=== PATIENT | female | born 1960 | race Caucasian/White ===

== ENCOUNTER 2016-09-27 11:25 | Observation (INO) | payer BC ==
[~2016-09-27] VITALS: Ht 167.6 cm; Wt 64.0 kg
[2016-09-27 11:49] VITALS: BP 119/83; PULSE 96; RESP 20; TEMP 97.7; O2SAT 100
[2016-09-27] MEDS ORDERED: SODIUM CHLOR 0.9% 1000 ML INJ 1,000 ML IV ONE (12:59)
[2016-09-27] MEDS ORDERED: SODIUM CHLORIDE 0.9% FLUSH 5 ML FLUSH IVF PRN (13:00)
[2016-09-27] MEDS ORDERED: ONDANSETRON HCL 4 MG/2 ML VIAL IVP ONE (13:00)
--- NOTE | 2016-09-27 13:12 | PD ---
HPI Chief Complaint: Flank/Kidney Pain Time Seen by Provider: 13:07 Travel History International Travel<30 days: No Contact w/Intl Traveler<30days: No Traveled to known affect area: No History of Present Illness HPI Patient is a 55-year-old female who presented to emergency for evaluation of left flank pain, nausea, vomiting. Patient states her symptoms started last night. She's been dry heaving since that time. Patient reports being treated for urinary tract infection twice over the last month with the last dose of antibiotics ending around September 14, 2016. Patient states that she was on Bactrim twice for 5 days each. She denies any abdominal pain, chest pain, shortness of breath. PFSH Past Medical History Thyroid Disease: Yes ?: Not LMP: Leela- Social History Alcohol Use: Yes Tobacco Use: No Substance Use: No Allergies-Medications (Allergen,Severity, Reaction): Coded Allergies: No Known Allergies (Unverified , 09/27/16) Reported Meds & Prescriptions Reported Meds & Active Scripts Active Reported Levothyroxine (Levothyroxine Sodium) 50 Mcg Tab 50 Mcg PO DAILY Review of Systems Except as stated in HPI: all other systems reviewed are Neg General / Constitutional: No: Fever, Chills HENT: No: Headaches Cardiovascular: No: Chest Pain or Discomfort Respiratory: No: Shortness of Breath Gastrointestinal: Positive: Nausea, Vomiting, Other (left flank pain) Genitourinary: No: Dysuria Physical Exam Narrative GENERAL: Developed, well-nourished, alert female. Appears acutely ill , in no acute distress. SKIN: Warm and dry. HEAD: Atraumatic. Normocephalic. EYES: Pupils equal and round. No scleral icterus. No injection or drainage. ENT: No nasal bleeding or discharge. Mucous membranes pink and moist. NECK: Trachea midline. No JVD. CARDIOVASCULAR: Regular rate and rhythm. No murmur appreciated. RESPIRATORY: No accessory muscle use. Clear to auscultation. Breath sounds equal bilaterally. GASTROINTESTINAL: Abdomen soft, non-tender, nondistended. Hepatic and splenic margins not palpable. MUSCULOSKELETAL: No obvious deformities. No clubbing. No cyanosis. No edema. Mild CVA tenderness on the left, none on the right. NEUROLOGICAL: Awake and alert. No obvious cranial nerve deficits. Motor grossly within normal limits. Normal speech. PSYCHIATRIC: Appropriate mood and affect; insight and judgment normal. Data Data Last Documented VS Vital Signs Date Time Temp Pulse Resp B/P Pulse Ox O2 Delivery O2 Flow Rate FiO2 09/27/16 11:49 97.7 96 20 119/83 100 Orders Complete Blood Count With Diff (09/27/16 12:59) Comprehensive Metabolic Panel (09/27/16 12:59) Urinalysis - C+S If Indicated (09/27/16 12:59) Iv Access Insert/Monitor (09/27/16 12:59) Ondansetron Inj (Zofran Inj) (09/27/16 13:00) Sodium Chloride 0.9% Flush (Ns Flush) (09/27/16 13:00) Sodium Chlor 0.9% 1000 Ml Inj (Ns 1000 M (09/27/16 12:59) Ct Abd/Pel W/O Iv Contrast (09/27/16 ) Ketorolac Inj (Toradol Inj) (09/27/16 13:45) Npo After Midnight W/ Po Meds (09/27/16 Dinner) ^ Consent (09/27/16 15:16) Admit Order (Ed Use Only) (09/27/16 15:51) Labs Laboratory Tests Test 09/27/16 09/27/16 13:00 13:15 Urine Color YELLOW Urine Turbidity CLEAR Urine pH 8.5 Urine Specific [place] 1.020 Urine Protein TRACE mg/dL Urine Glucose (UA) NEG mg/dL Urine Ketones 80 OR GREATER mg/dL Urine Occult Blood SMALL Urine Nitrite NEG Urine Bilirubin NEG Urine Leukocyte Esterase NEG Urine RBC 0-3 /hpf Urine WBC 6-8 /hpf Urine Transitional Epithelial 0-5 /hpf Cells Urine Bacteria OCC /hpf Urine Mucus OCC /lpf Microscopic Urinalysis Comment CULT NOT INDICATED White Blood Count 10.7 TH/MM3 Red Blood Count 4.68 MIL/MM3 Hemoglobin 13.9 GM/DL Hematocrit 40.6 % Mean Corpuscular Volume 86.8 FL Mean Corpuscular Hemoglobin 29.7 PG Mean Corpuscular Hemoglobin 34.2 % Concent Red Cell Distribution Width 11.7 % Platelet Count 324 TH/MM3 Mean Platelet Volume 9.1 FL Neutrophils (%) (Auto) 85.5 % Lymphocytes (%) (Auto) 5.9 % Monocytes (%) (Auto) 6.8 % Eosinophils (%) (Auto) 0.0 % Basophils (%) (Auto) 1.8 % Neutrophils # (Auto) 9.2 TH/MM3 Lymphocytes # (Auto) 0.6 TH/MM3 Monocytes # (Auto) 0.7 TH/MM3 Eosinophils # (Auto) 0.0 TH/MM3 Basophils # (Auto) 0.2 TH/MM3 CBC Comment AUTO DIFF Differential Comment AUTO DIFF CONFIRMED Sodium Level 140 MEQ/L Potassium Level 3.7 MEQ/L Chloride Level 103 MEQ/L Carbon Dioxide Level 25.2 MEQ/L Anion Gap 12 MEQ/L Blood Urea Nitrogen 12 MG/DL Creatinine 0.87 MG/DL Estimat Glomerular Filtration 67 ML/MIN Rate Random Glucose 105 MG/DL Calcium Level 9.2 MG/DL Total Bilirubin 0.6 MG/DL Aspartate Amino Transf 23 U/L (AST/SGOT) Alanine Aminotransferase 32 U/L (ALT/SGPT) Alkaline Phosphatase 77 U/L Total Protein 7.8 GM/DL Albumin 4.1 GM/DL MDM Medical Decision Making Medical Screen Exam Complete: Yes Emergency Medical Condition: Yes Interpretation(s) Laboratory Tests Test 09/27/16 09/27/16 13:00 13:15 Urine Color YELLOW Urine Turbidity CLEAR Urine pH 8.5 Urine Specific [place] 1.020 Urine Protein TRACE mg/dL Urine Glucose (UA) NEG mg/dL Urine Ketones 80 OR GREATER mg/dL Urine Occult Blood SMALL Urine Nitrite NEG Urine Bilirubin NEG Urine Leukocyte Esterase NEG Urine RBC 0-3 /hpf Urine WBC 6-8 /hpf Urine Transitional Epithelial 0-5 /hpf Cells Urine Bacteria OCC /hpf Urine Mucus OCC /lpf Microscopic Urinalysis Comment CULT NOT INDICATED White Blood Count 10.7 TH/MM3 Red Blood Count 4.68 MIL/MM3 Hemoglobin 13.9 GM/DL Hematocrit 40.6 % Mean Corpuscular Volume 86.8 FL Mean Corpuscular Hemoglobin 29.7 PG Mean Corpuscular Hemoglobin 34.2 % Concent Red Cell Distribution Width 11.7 % Platelet Count 324 TH/MM3 Mean Platelet Volume 9.1 FL Neutrophils (%) (Auto) 85.5 % Lymphocytes (%) (Auto) 5.9 % Monocytes (%) (Auto) 6.8 % Eosinophils (%) (Auto) 0.0 % Basophils (%) (Auto) 1.8 % Neutrophils # (Auto) 9.2 TH/MM3 Lymphocytes # (Auto) 0.6 TH/MM3 Monocytes # (Auto) 0.7 TH/MM3 Eosinophils # (Auto) 0.0 TH/MM3 Basophils # (Auto) 0.2 TH/MM3 CBC Comment AUTO DIFF Differential Comment AUTO DIFF CONFIRMED Sodium Level 140 MEQ/L Potassium Level 3.7 MEQ/L Chloride Level 103 MEQ/L Carbon Dioxide Level 25.2 MEQ/L Anion Gap 12 MEQ/L Blood Urea Nitrogen 12 MG/DL Creatinine 0.87 MG/DL Estimat Glomerular Filtration 67 ML/MIN Rate Random Glucose 105 MG/DL Calcium Level 9.2 MG/DL Total Bilirubin 0.6 MG/DL Aspartate Amino Transf 23 U/L (AST/SGOT) Alanine Aminotransferase 32 U/L (ALT/SGPT) Alkaline Phosphatase 77 U/L Total Protein 7.8 GM/DL Albumin 4.1 GM/DL Vital Signs Date Time Temp Pulse Resp B/P Pulse Ox O2 Delivery O2 Flow Rate FiO2 09/27/16 11:49 97.7 96 20 119/83 100 Differential Diagnosis Pyelonephritis versus kidney stone versus gastroenteritis versus obstruction versus other Narrative Course Patient is a 59-year-old female who presented to emergency for evaluation of left flank pain, nausea, vomiting that started last night. Patient has been treated twice over the last month for urinary tract infection. Differential to include pyelonephritis, renal calculi, gastroenteritis. Absent imaging ordered and pending. IV fluids and Zofran ordered. Her vital signs are stable, at bedside. Patient's pain is well-controlled at this time with Toradol , she has had no further vomiting. CT report shows a left obstructing renal calculi at the UP junction, discussed with Dr. Armstrong who recommended patient to transfer to [facility], for surgery at 9 AM[facility]. Discussed patient's presentation, labs, imaging with Dr. Moncada who accepted admission. Discussed findings with patient and her , they are agreeable to plan, agreeable to transfer to the [facility] hospital. Patient continues to be resting comfortably, she has not had any further vomiting. Diagnosis Primary Impression: Hydronephrosis with urinary obstruction due to renal calculus Admitting Information Admitting Physician Requests: Observation Condition: Stable Abigail Bain Sep 27, 2016 13:12
[2016-09-27] MEDS ORDERED: LEVO50TA4 PO (13:19)
[2016-09-27 13:22] LABS: BLOOD, URINE SMALL (NEG); GLUCOSE,URINE NEG (NEG); NITRITE,URINE NEG (NEG); PH, URINE 8.5 (5.0-8.5)
[2016-09-27 13:23] LABS: KETONE, URINE 80 OR GREATER mg/dL (NEG)
[2016-09-27 13:26] LABS: AUTOMATED NEUTROPHIL # 9.2 TH/MM3 (1.8-7.7); BASOPHIL # 0.2 TH/MM3 (0-0.2); BASOPHIL % 1.8 % (0.0-2.0); HEMATOCRIT 40.6 % (35.0-46.0); LYMPH % 5.9 % (9.0-44.0); LYMPHOCYTE # 0.6 TH/MM3 (1.0-4.8); MEAN CELL VOLUME 86.8 FL (80.0-100.0); MEAN CORPUSCULAR HEMOGLOBIN 29.7 PG (27.0-34.0); MEAN CORPUSCULAR HGB CONC 34.2 % (32.0-36.0); MONO % 6.8 % (0.0-8.0); NEUT % 85.5 % (16.0-70.0); PLATELET COUNT 324 TH/MM3 (150-450); RED BLOOD COUNT 4.68 MIL/MM3 (4.00-5.30); RED CELL DISTRIBUTION WIDTH 11.7 % (11.6-17.2); WHITE BLOOD COUNT 10.7 TH/MM3 (4.0-11.0)
[2016-09-27 13:28] LABS: HEMO FLAGS AUTO DIFF
[2016-09-27 13:33] LABS: MUCUS URINE OCC /lpf (OCC); URINE COLOR YELLOW (YELLW/STRAW)
[2016-09-27 13:34] LABS: BACTERIA, URINE OCC /hpf; COMMENT (UR) CULT NOT INDICATED; CULTURE IF INDICATED CULT NOT INDICATED; RBC, URINE 0-3 /hpf (0-3); TRANSITIONAL EPI CELLS, URINE 0-5 /hpf
[2016-09-27 13:36] LABS: CHLORIDE 103 MEQ/L (98-107); POTASSIUM 3.7 MEQ/L (3.5-5.1); SODIUM (NA) 140 MEQ/L (136-145)
[2016-09-27 13:40] LABS: ANION GAP 12 MEQ/L (5-15); BICARBONATE 25.2 MEQ/L (21.0-32.0); BLOOD UREA NITROGEN 12 MG/DL (7-18)
[2016-09-27 13:43] LABS: ALT (GPT) 32 U/L (10-53); AST (GOT) 23 U/L (15-37); GLOMERULAR FILTRATION RATE 67 ML/MIN (>89)
[2016-09-27 13:44] LABS: TOTAL BILIRUBIN ADULT 0.6 MG/DL (0.2-1.0)
[2016-09-27] MEDS ORDERED: KETOROLAC TROMETHAMINE 30 MG/ML (IVP) VIAL IV PUSH ONE (13:45)
[2016-09-27 13:46] LABS: ALKALINE PHOSPHATASE 77 U/L (45-117)
[2016-09-27 13:49] LABS: SCAN/DIFF AUTO DIFF CONFIRMED
--- NOTE | 2016-09-27 14:41 | RADHPO ---
EXAM DATE/TIME: 09/27/2016 14:09 [facility] COMPARISON: No previous studies available for comparison. INDICATIONS: Left flank pain. ORAL CONTRAST: No oral contrast ingested. RADIATION DOSE: 11.35 CTDIvol (mGy) MEDICAL HISTORY: None SURGICAL HISTORY: section. ENCOUNTER: Initial ACUITY: 2 days PAIN SCALE: 0/10 LOCATION: Left flank TECHNIQUE: Volumetric scanning of the abdomen and pelvis was performed. Using automated exposure control and ad justment of the mA and/or kV according to patient size, radiation dose was kept as low as reasonably achievable to obtain optimal diagnostic quality images. FINDINGS: The liver is free of focal defects. Spleen is unremarkable. Pancreas and adrenals appear normal. The right kidney is unremarkable. There is marked perinephric stranding about the left kidney with a densely calcified 1.7 cm stone in the proximal left renal pelvis at the UP junction causing a moderate obstruction. Marked perinephric stranding is noted. Pelvic contents unremarkable. Review of bone windows reveals only degenerative changes. CONCLUSION: Obstructing stone of UP junction on the left causing a moderate hydronephrosis. Everton Simon MD FACR on September 27, 2016 at 14:28 Board Certified Radiologist. This report was verified electronically.
[2016-09-27 16:20] VITALS: BP 131/66; PULSE 90; RESP 20; O2SAT 100
[2016-09-27] MEDS ORDERED: ACETAMINOPHEN 325 MG TAB PO PRN (16:45)
[2016-09-27] MEDS ORDERED: NALOXONE HCL 0.4 MG/ML AMP IV PRN (16:45)
[2016-09-27] MEDS ORDERED: SODIUM CHLORIDE 0.9% FLUSH 5 ML FLUSH FLUSH PRN (16:45)
[2016-09-27] MEDS: SODIUM CHLOR 0.9% 1000 ML INJ 1,000 ML IV SCH ×2 (17:35→21:30)
[2016-09-27] MEDS: MORPHINE SULFATE 4 MG/ML INJ IV PUSH PRN ×2 (17:35→23:09)
[2016-09-27] MEDS: ONDANSETRON HCL 4 MG/2 ML VIAL IVP PRN ×2 (17:36→23:08)
[2016-09-27 18:30] VITALS: BP 119/55; PULSE 98; RESP 18; O2SAT 98
[2016-09-27] MEDS: SODIUM CHLORIDE 0.9% FLUSH 5 ML FLUSH FLUSH SCH (21:00)
[2016-09-27 22:53] VITALS: BP 125/87; PULSE 97; RESP 16; TEMP 98.5; O2SAT 99
[2016-09-28] MEDS ORDERED: LEVOTHYROXINE SODIUM 50 MCG TAB PO SCH (06:00)
[2016-09-28 06:21] VITALS: BP 119/72; PULSE 84; RESP 16; TEMP 98.4; O2SAT 98
[2016-09-28] MEDS: ONDANSETRON HCL 4 MG/2 ML VIAL IVP PRN (06:25)
[2016-09-28 07:35] VITALS: BP 121/62; PULSE 95; RESP 17; TEMP 98; O2SAT 98
[2016-09-28 07:59] LABS: AUTOMATED NEUTROPHIL # 7.5 TH/MM3 (1.8-7.7); BASOPHIL % 0.5 % (0.0-2.0); EOSINOPHIL % 0.1 % (0.0-4.0); HEMATOCRIT 34.3 % (35.0-46.0); HEMO FLAGS DIFF FINAL; LYMPH % 9.3 % (9.0-44.0); LYMPHOCYTE # 0.9 TH/MM3 (1.0-4.8); MEAN CELL VOLUME 87.6 FL (80.0-100.0); MEAN CORPUSCULAR HEMOGLOBIN 30.2 PG (27.0-34.0); MEAN CORPUSCULAR HGB CONC 34.5 % (32.0-36.0); MONO % 11.2 % (0.0-8.0); NEUT % 78.9 % (16.0-70.0); PLATELET COUNT 236 TH/MM3 (150-450); RED BLOOD COUNT 3.92 MIL/MM3 (4.00-5.30); RED CELL DISTRIBUTION WIDTH 12.5 % (11.6-17.2); WHITE BLOOD COUNT 9.5 TH/MM3 (4.0-11.0)
[2016-09-28 08:18] LABS: BICARBONATE 23.4 MEQ/L (21.0-32.0); POTASSIUM 3.6 MEQ/L (3.5-5.1)
--- NOTE | 2016-09-28 08:42 | MH ---
cc: ANGELIC MONCADA MD DATE OF ADMISSION 09/27/2016 DATE OF [address] Angelic Moncada PRIMARY CARE PHYSICIAN Dr. Suero REASON FOR ADMISSION Fever, flank pain radiated to the abdomen. HISTORY OF PRESENT ILLNESS The patient is a very pleasant 55-year female seen with a past medical history of hypothyroidism for which he is on Levothyroxine. As per patient's history, the patient has been seen at the bedside. The patient has started having pain in her left-sided pointing toward the back area, left and periumbilical area starting on Tuesday evening. After two hours, she started having nausea and vomiting. It was initially mild and then moderate in intensity. She came to the ER yesterday morning around 9-9:30. After pain medication, it was improving, but she is still having nausea and nausea subsided as well with medication. Workup was started which showed the patient had an obstructive stone of the UP junction on the left causing a moderate hydronephrosis for which the patient was recommended for admission with urology intervention. The [facility] talked to Dr. Anthony Armstrong who recommended for admission to the [facility] for intervention. The patient was transferred yesterday late last night and today she is seen in her room with her . At present, the patient has no pain. She has no nausea or vomiting. She is feeling tired. There are no other associated symptoms. PAST MEDICAL HISTORY Thyroid nodule PAST SURGICAL HISTORY History of in the past. MEDICATIONS Levothyroxine REVIEW OF SYSTEMS As described above in history of present illness, otherwise negative for 10 systems. SOCIAL HISTORY The patient does not smoke, drink, and does not do any drugs. Works in a dentist's office. ALLERGIES The patient has NO KNOWN DRUG ALLERGIES. FAMILY HISTORY Father has leukemia. Mother has Hodgkin's. PHYSICAL EXAM The patient is alert and oriented x3, well-built, well-nourished lying on bed without any apparent distress at present. VITALS: Show the patient is afebrile, pulse is 93, respiratory rate is 17, blood pressure was 121/62, pulse ox of 98 on room air. HEENT: Head is atraumatic, normocephalic. Eyes, negative conjunctival icterus. Mouth unremarkable. NECK: Supple. No increased in JVD. Negative thyromegaly. Central trachea. RESPIRATORY: Chest clear to auscultation. CARDIOVASCULAR: S1 and S2 audible. Unable to hear any S3 gallop or murmur. GI: Abdomen is soft, no organomegaly. Positive bowel sounds. MUSCULOSKELETAL: Extremities have no cyanosis or pedal edema appreciated. [employer]: Grossly intact. SKIN: Warm and dry. PSYCH: Appropriate mood and affect. ABDOMEN: There is no positive tenderness of the costophrenic angle or periumbilical region. INVESTIGATIONS WBC, hemoglobin, hematocrit and platelet count within normal limits. BMP done yesterday is within normal limits. GFR is 67. LFTs within normal limits. Urine shows urine ketones 80, occult blood is small, WBC's 6-8, culture not indicated. IMAGING STUDIES Abdominal and pelvic CT shows obstructing stone a UP junction on the left causing moderate hydronephrosis. ASSESSMENT 1. Severe flank and jane-abdominal pain with hydronephrosis and urinary obstruction due to renal calculus. 2. Thyroid nodule on Levothyroxine. PLAN 1. Admit to the floor. 2. IV hydration. 3. Continue home medication. 4. P.r.n. pain medication. 5. P.r.n. Antiemetics. 6. SCD's for DVT prophylaxis. 7. Also, urology consult for intervention possible this morning. 8. Continue home medication. 9. Discussed with the patient and at bedside. 10. EKG 11. Further recommendation to follow as per patient progress. Angelic Moncada MD JP/NICANOR /8:16 AM :30 AM
[2016-09-28] MEDS ORDERED: MIDAZOLAM HCL 2 MG/2 ML VIAL ONE (08:44)
[2016-09-28] MEDS ORDERED: DEXAMETHASONE SOD PHOS 4 MG/ML VIAL ONE (08:44)
[2016-09-28] MEDS ORDERED: ceFAZolin INJ 1,000 MG VIAL ONE (08:44)
[2016-09-28] MEDS ORDERED: ACETAMINOPHEN 1000 MG/100 ML VIAL IV ONE (08:44)
[2016-09-28] MEDS ORDERED: FAMOTIDINE 20 MG/2 ML VIAL ONE (08:44)
[2016-09-28] MEDS ORDERED: SODIUM CHLORIDE 0.9% INJ 100 ML ONE (08:44)
[2016-09-28] MEDS: SODIUM CHLORIDE 0.9% FLUSH 5 ML FLUSH FLUSH SCH (09:00)
[2016-09-28] MEDS ORDERED: ceFAZolin 1,000 MG/NS 100 ML IV SCH ×2 (09:15)
--- NOTE | 2016-09-28 09:34 | MB ---
cc: ADRIEL MENARD DATE OF CONSULTATION: 09/28/2016 REASON FOR CONSULTATION: Follow up. HISTORY OF PRESENT ILLNESS: This is a pleasant 55-year-old female who presented with left-sided flank pain, lower abdominal pain. which began on Tuesday evening she then developed nausea and vomiting and then presented to the emergency room in [place]. CT scan was performed demonstrating 1.7, stone at the left UPJ with hydronephrosis present. ALLERGIES She has no known drug allergies. MEDICATIONS: Levothyroxine. PAST MEDICAL HISTORY: Hypothyroidism There has been no prior history of stones. PAST SURGICAL HISTORY: Notable for . SOCIAL HISTORY Denies smoking, drinking or using any drugs. FAMILY HISTORY: Her family history. She denies any family history of stones. REVIEW OF SYSTEMS As per the HPI, otherwise negative for the 10 systems. PHYSICAL EXAMINATION: VITAL SIGNS: Temperature is 98, heart rate 95, respiratory rate 17, 121/62 90% on room air. IN GENERAL: She is well-developed, well-nourished 55-year-old female in no acute distress. HEAD, EYES, EARS, NOSE, AND THROAT: Normocephalic and atraumatic. Pupils equal round reactive to light. Extraocular is intact. NECK: Neck is supple. Trachea is midline. Oral mucosa is moist. HEART: The heart rate is regular rate and rhythm. LUNGS: Lungs are clear to auscultation. ABDOMEN: Soft, nontender, nondistended. There is left costovertebral angle tenderness noted. EXTREMITIES: Show no signs clubbing or edema. LABORATORY FINDINGS: White count 9.5, hemoglobin of 11.8, hematocrit 34.3, platelet count 236, sodium 141, potassium 3.6, chloride 108, CO2 23.4, BUN of nine, creatinine 1.0, glucose of 100. Urinalysis shows 6 to 8 white cells and 0-[address] imaging was reviewed by myself demonstrating a 1.7-cm left stone at the UPJ with mild to moderate hydronephrosis. ASSESSMENT: A 55-year-old female with a 1.7 left UPJ test stone causing hydronephrosis with obstruction. RECOMMENDATIONS Cystoscopy with left double-J stent insertion followed by extracorporeal shock wave lithotripsy in the future. Risk and benefits were discussed and the patient is willing to proceed. Adrieliraj Wan 9:05 AM 9:13 AM
[2016-09-28] MEDS ORDERED: IOHEXOL 300 MG/ML 50 ML BTL (for RAD DIAG) OTHER ONE (09:35)
[2016-09-28] MEDS ORDERED: DO NOT ADM ANY ANTICOAGULANT DRUGS XX PRN (10:00)
[2016-09-28 11:17] VITALS: BP 114/60; PULSE 91; RESP 20; TEMP 97.2; O2SAT 99
[2016-09-28] MEDS ORDERED: ONDANSETRON HCL 4 MG/2 ML VIAL IV PUSH ONE (13:27)
[2016-09-28] MEDS ORDERED: PROPOFOL 200 MG/20 ML AMP IV ONE (13:27)
[2016-09-28 14:33] VITALS: BP 112/57; PULSE 106; RESP 20; TEMP 98.1; O2SAT 98
--- NOTE | 2016-09-28 15:11 | HHI.DS ---
Discharge Summary Admission Date Sep 27, 2016 at 15:53 Admitting Diagnosis hydronephrosis, obstructing renal calculi (1) Hydronephrosis with urinary obstruction due to renal calculus Diagnosis: Principal Brief History Patient was admitted because of pain nausea vomiting. Follow to have a obstructing ureteral stone causing hydronephrosis. Patient was admitted put on IV hydration and appropriate medication including analgesics. Urology consultation was called in. Patient has double-J stent with cystoscopy in the left ureter. As per urologist can be discharged. As patient is overall stable and good condition plan to discharge her home to follow urology as outpatient. Advised to call urology office for further appointment. Also to follow her primary care doctor. Patient will be discharged on home medications plus Lortab every 6 hours when necessary basis or radium 100 mg twice a day and Levaquin 500 mg by mouth daily for 3 days. Patient understood all. Prescriptions for above medications given to the patient CBC/BMP: 09/28/16 0700 09/28/16 0700 Significant Findings Laboratory Tests Test 09/27/16 09/27/16 09/28/16 13:00 13:15 07:00 Urine Ketones 80 OR GREATER mg/dL (NEG) Urine Occult Blood SMALL (NEG) Urine WBC 6-8 /hpf (0-5) Urine Bacteria OCC /hpf (NONE) Neutrophils (%) (Auto) 85.5 % 78.9 % (16.0-70.0) (16.0-70.0) Lymphocytes (%) (Auto) 5.9 % (9.0-44.0) Neutrophils # (Auto) 9.2 TH/MM3 (1.8-7.7) Lymphocytes # (Auto) 0.6 TH/MM3 0.9 TH/MM3 (1.0-4.8) (1.0-4.8) Estimat Glomerular Filtration 67 ML/MIN (>89) 56 ML/MIN (>89) Rate Red Blood Count 3.92 MIL/MM3 (4.00-5.30) Hematocrit 34.3 % (35.0-46.0) Monocytes (%) (Auto) 11.2 % (0.0-8.0) Monocytes # (Auto) 1.1 TH/MM3 (0-0.9) Chloride Level 108 MEQ/L (98-107) Creatinine 1.01 MG/DL (0.50-1.00) Calcium Level 8.4 MG/DL (8.5-10.1) Pt Condition on Discharge: Good Discharge Disposition: Discharge Home Discharge Instructions DIET: Follow Instructions for: Heart Healthy Diet Activities you can perform: Weight Bearing as Areli Follow up Referrals: PCP Follow-up - 1 Week Urology - 1 Week Call office for appointment Continued Medications: Levothyroxine (Levothyroxine) 50 Mcg Tab 50 MCG PO DAILY Thyroid #30 Ref 0 TAB Rose Moncada MD Sep 28, 2016 15:11
--- NOTE | 2016-09-28 17:08 | EKG ---
Date Performed: 09/28/2016 Time Performed: 08:17:49 PTAGE: 55 years EKG: Sinus rhythm POSSIBLE LEFT ATRIAL ENLARGEMENT LOW QRS VOLTAGE IN EXTREMITY LEADS BORDERLINE ECG INTERPRETATION BA SED ON A DEFAULT AGE OF 40 YEARS NO PREVIOUS TRACING DOCTOR: Bloivar Porter Interpretating Date/Time 09/28/2016 17:05:03
--- NOTE | 2016-09-28 22:18 | MP ---
cc: ADRIEL ARMSTRONG DATE OF SURGERY: 09/28/2016 PREOPERATIVE DIAGNOSIS: 1.7 left UPJ stone with left hydronephrosis. POSTOPERATIVE DIAGNOSIS 1.7 left UPJ stone with left hydronephrosis. PROCEDURE Cystoscopy, left retrograde study, left double-J stent insertion SURGEON Adriel Armstrong MD. ANESTHESIA: General LMA. FLUIDS: One liter Crystalloid BLOOD LOSS: None. COMPLICATIONS: None. DRAINS: 6 [place]ibian 22 cm left double-J stent The patient tolerated the procedure well and was transferred to the Recovery Room in stable condition. INDICATIONS FOR PROCEDURE: Julia Vanegas is a 55-year-old female who presents with left-sided flank pain, nausea and vomiting. CT scan revealed a 1.7 cm left UPJ stone with moderate hydronephrosis. The plan was to take the patient to the operating room to undergo cystoscopy, left double-J stent insertion. The risks and benefits were discussed preoperatively and she was willing to proceed. DESCRIPTION OF PROCEDURE: The patient was brought to the operating room, identified by myself as Julia Vanegas. She was placed in the dorsolithotomy position, prepped and draped in the usual sterile fashion. She received preprocedure antibiotics and general LMA anesthesia was administred. A 22 [place]ibian cystoscope was then inserted into the bladder. Pancystoscopy showed mild cystitis but no other abnormalities were noted within the bladder. The left ureteral orifice was identified and the 5 [place]ibian open-ended catheter was inserted into the left ureteral orifices. Retrograde study was performed demonstrating the stone at the left UPJ with moderate hydronephrosis. An 0.035 sensor wire was passed through the open-ended catheter leaving the wire in place and the catheter was removed. A 6 [place]ibian 22-cm left double-J stent was passed over the wire with a good curl in the kidney and a good curl in the bladder. The bladder was evacuated. She was awoken, transferred to the Recovery Room in stable condition. The plan for her will be to undergo left extrapleural shock wave lithotripsy in the future. Adriel LEAL/LUCRECIA /9:48 AM /10:07 PM
[2016-10-06] MEDS ORDERED: RANI1TAB5 PO (06:55)
[2016-10-06] MEDS ORDERED: OXYB5TAB10 PO (09:10)
[2016-10-06] MEDS ORDERED: HYDR-3533 PO (09:10)
[2016-10-06] MEDS ORDERED: CIPR-9 PO (09:10)
[2016-10-25] MEDS ORDERED: ALPR.25 PO (13:54)
[2016-11-11] MEDS ORDERED: BACT800T5 PO (16:05)
== END 2016-09-28 17:15 | disposition home or self-care (01) ==
LOC: PHED 11:25 → PHEDA 15:53 → NEPFCDU 23:05
PROVIDERS: ADMIT Specialist; ATTEND Specialist
DX: N13.2 Hydronephrosis with renal and ureteral calculous obstruction (principal); E03.9 Hypothyroidism, unspecified; Z87.440 Personal history of urinary (tract) infections
CPT/HCPCS: 00910; 52332; 74176; 74420; 80048; 80053; 81001; 85025; 93005; 96361; 96374; 96375; 99285; C1769; C2617; G0378; J0131; J0690; J1100; J1885; J2250; J2270; J2405; J3010; J7030; Q9967

== ENCOUNTER → 2016-10-06 | Day surgery (SDC) | payer BC ==
[~2016-10-06] VITALS: Ht 167.6 cm; Wt 63.6 kg
[~2016-10-06] MED LIST: ALPR.25 PO; BACT800T5 PO; CIPR-9 PO; FAMOTIDINE 20 MG/2 ML VIAL ONE; HYDR-3533 PO; LACTATED RINGER'S 1000 ML INJ 1,000 ML ONE; LEVO50TA4 PO; LIDOCAINE HCL 1% 20 ML VIAL ONE; MIDAZOLAM HCL 2 MG/2 ML VIAL ONE; MORPHINE SULFATE 4 MG/ML INJ ONE; ONDANSETRON HCL 4 MG/2 ML VIAL ONE; OXYB5TAB10 PO; PROPOFOL 200 MG/20 ML AMP IV ONE; RANI1TAB5 PO; SODIUM CHLORIDE 0.9% INJ 50 ML ONE; ceFAZolin INJ 1,000 MG VIAL ONE
[2016-10-06 06:59] VITALS: BP 116/78; PULSE 78; RESP 16; TEMP 97.8; O2SAT 100
--- NOTE | 2016-10-06 06:59 | RADRPT ---
EXAM DATE/TIME: 10/06/2016 06:30 [facility] COMPARISON: CT ABDOMEN & PELVIS W/O CONTRAST, September 27, 2016, 14:09. INDICATIONS : Pre op lithotripsy. Patient has left side kidney stone. MEDICAL HISTORY : None. SURGICAL HISTORY : None. ENCOUNTER: Initial ACUITY: 1 day PAIN SCORE: 0/10 LOCATION: Left Kidney. FINDINGS: Supine view of the abdomen was performed. The abdominal bowel gas pattern is normal. There is a 7 mm calcification along the lower pole of left kidney characteristic for a left renal calculus. There is a left sided double-J stent in good position. No definite calcifications are seen over the right kid terence. Bony structures are grossly intact. CONCLUSION: 1. Left sided double-J stent in good position 2. 7 mm stone lower pole left kidney. Tomasz Barrios MD on October 06, 2016 at 6:56 Board Certified Radiologist. This report was verified electronically.
[2016-10-06 07:27] LABS: HEMATOCRIT 39.4 % (35.0-46.0); MEAN CELL VOLUME 87.3 FL (80.0-100.0); MEAN CORPUSCULAR HEMOGLOBIN 30.1 PG (27.0-34.0); MEAN CORPUSCULAR HGB CONC 34.5 % (32.0-36.0); PLATELET COUNT 321 TH/MM3 (150-450); RED BLOOD COUNT 4.51 MIL/MM3 (4.00-5.30); RED CELL DISTRIBUTION WIDTH 12.7 % (11.6-17.2); REVIEW FLAG FINAL; WHITE BLOOD COUNT 6.5 TH/MM3 (4.0-11.0)
[2016-10-06 10:10] VITALS: BP 112/77; PULSE 75; RESP 16; TEMP 98.4; O2SAT 100
--- NOTE | 2016-10-07 11:16 | MP ---
cc: ADRIEL ARMSTRONG DATE OF SURGERY 10/06/2016 PREOPERATIVE DIAGNOSIS 7 mm left renal calculus. POSTOPERATIVE DIAGNOSIS 7 mm left renal calculus. PROCEDURE Left extracorporeal shock wave lithotripsy. SURGEON Adriel Armstrong MD ANESTHESIA TIVA FLUIDS 500 cc crystalloid BLOOD LOSS No blood loss. COMPLICATIONS No complications. FINDINGS Good fragmentation of the left renal calculus. She tolerated the procedure well and was transferred to the Recovery Room in stable addition. INDICATIONS Julia Vanegas is a 55-year-old female with findings of a 7-mm left UPJ stone. She underwent cystoscopy with left double-J stent insertion in the past and presents today for left extracorporeal shock wave lithotripsy. The risks and benefits were discussed and she was willing to proceed. PROCEDURE The patient brought to operating room, identified by myself as Julia Hodgson. She was placed in the supine position on the operating table. She received TIVA anesthesia and preprocedure antibiotics were given. Under fluoroscopic imaging guidance, the stone was visualized and starting with a power level of 12 and a rate of 120 ESWL therapy commenced. The power level was increased as the shock rate continued and power level was up to 19 and a total of 2500 shocks were given. Good fragmentation of the stone was visualized under fluoroscopic imaging guidance and she tolerated procedure well. She has awoken and transferred to the Recovery Room in stable condition. She will follow up in two weeks in the office and undergo cystoscopy with stent removal and will obtain a KUB prior. Adriel LEAL/BRITL /8:42 AM /11:08 AM
== END | disposition home or self-care (01) ==
LOC: CSDC 05:28
PROVIDERS: ATTEND Urology
DX: N20.0 Calculus of kidney (principal); N20.1 Calculus of ureter
CPT/HCPCS: 00873; 36415; 50590; 74000; 85027; J0690; J2250; J2270; J2405; J7120